=== PATIENT | female | born 2000 | race Caucasian/White ===

== ENCOUNTER 2022-05-18 09:47 | Outpatient (REF) | payer OTHER, SELFPAY ==
--- NOTE | ~2022-05-18 | MR_ITS ---
EXAMINATION: MR WITHOUT CONTRAST LOWER LEG, LEFT CLINICAL INFORMATION: Left lower leg pain. Evaluate for stress fracture COMPARISON: None TECHNIQUE: MRI without contrast is performed on the left lower leg on a 1.5 [employer] MRI scanner. FINDINGS: Focal mild cortical thickening and intermediate signal of the posteromedial cortex of the proximal tibial diaphysis with periosteal and endosteal edema compatible with stress reaction and a minimal stress fracture. No acute muscle strain or tear. The fibula appears normal. MR/MR lower leg LT wo con IMPRESSION: Stress reaction and minimal stress fracture involving the posteromedial aspect of the proximal tibial diaphysis.
== END 2022-05-18 09:48 | disposition home or self-care (01) ==
LOC: HO.MRI 09:47
PROVIDERS: PCP Nurse Practitioner; Visit Provider Orthopaedic Surgery
DX: M79.662 Pain in left lower leg (principal)
CPT/HCPCS: 73718